=== PATIENT | male | born 1965 | race American Indian/Alaskan Native ===

== ENCOUNTER 2017-07-14 07:48 | Emergency (ER) | payer BC ==
[2017-07-14 08:00] VITALS: BP 167/66
--- NOTE | 2017-07-14 09:08 | Emergency Department Report ---
ED General Adult HPI - General Chief complaint: Allergic Reaction Stated complaint: ALLERGIC REACTION Time Seen by Provider: 07/14/17 08:51 Source: patient Mode of arrival: Ambulatory Limitations: No Limitations - History of Present Illness Initial comments: PT states he used a new hair dye on his olivia and eye brows yesterday. PT reports an allergic reaction. Pt states his skin is itchy and irritated. PT denies sob or throat swelling. MD Complaint: allergic reaction -: Gradual, days(s) Location: face Quality: constant (irritated, itching ) Consistency: constant Associated Symptoms: rash. denies: chest pain, cough, nausea/vomiting, shortness of breath Treatments Prior to Arrival: none - Related Data Previous Rx's Medication Instructions Recorded Last Taken Type Cephalexin [Keflex] 500 mg PO Q6HR #40 capsule 07/14/17 Unknown Rx hydrOXYzine PAMOATE [Vistaril] 25 mg PO Q6HR PRN #12 capsule 07/14/17 Unknown Rx methylPREDNISolone [Medrol] 4 mg PO DAILY #1 tab.ds.pk 07/14/17 Unknown Rx Allergies Allergy/AdvReac Type Severity Reaction Status Date / Time red dye Allergy Rash Verified 07/14/17 07:54 ED Review of Systems ROS: Stated complaint: ALLERGIC REACTION Other details as noted in HPI Comment: All other systems reviewed and negative Constitutional: denies: fever, malaise ENT: other (facial rash ). denies: throat pain, congestion Respiratory: denies: cough, shortness of breath Cardiovascular: denies: chest pain Skin: rash ED Past Medical Hx - Past Medical History Previous Medical History?: No - Surgical History Past Surgical History?: Yes Additional Surgical History: right wrist repair - Social History Smoking Status: Former Smoker Substance Use Type: Marijuana - Medications Home Medications: Home Medications Medication Instructions Recorded Confirmed Last Taken Type Cephalexin [Keflex] 500 mg PO Q6HR #40 capsule 07/14/17 Unknown Rx hydrOXYzine PAMOATE [Vistaril] 25 mg PO Q6HR PRN #12 capsule 07/14/17 Unknown Rx methylPREDNISolone [Medrol] 4 mg PO DAILY #1 tab.ds.pk 07/14/17 Unknown Rx ED Physical Exam - General Limitations: No Limitations General appearance: alert, in no apparent distress - Head Head exam: Present: atraumatic, normocephalic, normal inspection - Eye Eye exam: Present: normal appearance, PERRL. Absent: conjunctival injection - ENT ENT exam: Present: normal exam, mucous membranes moist, normal external ear exam - Neck Neck exam: Present: normal inspection, full ROM. Absent: lymphadenopathy - Respiratory Respiratory exam: Present: normal lung sounds bilaterally. Absent: respiratory distress, wheezes, chest wall tenderness - Cardiovascular Cardiovascular Exam: Present: regular rate, normal rhythm - Extremities Exam Extremities exam: Present: normal inspection, full ROM - Back Exam Back exam: Present: normal inspection, full ROM - Neurological Exam Neurological exam: Present: alert, altered - Psychiatric Psychiatric exam: Present: normal affect, normal mood - Skin Skin exam: Present: warm, dry, intact, rash, other (erythemic rash along chin and above eye brows. ) ED Course Vital Signs 07/14/17 07:57 Temperature 98.4 F Pulse Rate 82 Respiratory 17 Rate Blood Pressure 167/66 [Left] O2 Sat by Pulse 100 Oximetry - Reevaluation(s) Reevaluation #1: 07/14/17 09:09 PT treated with Solu-medrol. PT aware of plan of care. PT given strict return precautions. PT verbalizes understanding. PT has no questions at this time. - Pulse Oximetry Interpretation Digit-Finger Initial Pulse Oximetry Readin Actions Taken: none ED Medical Decision Making - Differential Diagnosis allergic reaction Critical Care Time: No Critical care attestation.: If time is entered above; I have spent that time in minutes in the direct care of this critically ill patient, excluding procedure time. ED Disposition Clinical Impression: Allergic reaction to dye Qualifiers: Encounter type: initial encounter Qualified Code(s): T50.995A - Adverse effect of other drugs, medicaments and biological substances, initial encounter Disposition: DC-01 TO HOME OR SELFCARE Is pt being admited?: No Does the pt Need Aspirin: No Condition: Stable Instructions: Contact Dermatitis (ED), Hypertension (ED) Additional Instructions: No driving or alcohol after taking vistaril try not scratch Avoid using hair dye at this time. If you want to use hair dye in the future, please spot test before applying. return to the ED if worsening or concerns. Follow up with PCP in 3-5 days for BP recheck Prescriptions: Cephalexin [Keflex] 500 mg PO Q6HR #40 capsule hydrOXYzine PAMOATE [Vistaril] 25 mg PO Q6HR PRN #12 capsule PRN Reason: Itching methylPREDNISolone [Medrol] 4 mg PO DAILY #1 tab.ds.pk Referrals: PRIMARY CAREMD [Primary Care Provider] - 3-5 Days RONALD CRAWLEY MD [Staff Physician] - 3-5 Days [facility] [Outside] - 3-5 Days [facility] [Outside] - 3-5 Days Forms: Work/School Release Form(ED) Time of Disposition: 09:11
== END 2017-07-14 09:35 | disposition home or self-care (01) ==
LOC: ED 07:48
DX: T50.995A Adverse effect of other drugs, medicaments and biological substances, initial encounter (principal); Y92.9 Unspecified place or not applicable; F12.10 Cannabis abuse, uncomplicated
CPT/HCPCS: 96372; 99281; J2930

== ENCOUNTER 2017-08-02 17:08 | Emergency (ER) | payer BC ==
[2017-08-02] MEDS ORDERED: CLEOCIN IM STA (19:12)
[2017-08-02] MEDS ORDERED: DECADRON IM ONE (19:13)
[2017-08-02] MEDS ORDERED: PERCOCET 5/325 PO PRN (19:13)
--- NOTE | 2017-08-02 19:15 | Emergency Department Report ---
Abscess Boil [facility] - HPI Chief Complaint: Skin Rash Stated Complaint: FACIAL DRAINAGE Time Seen by Provider: 08/02/17 19:11 Duration: >1 Week Location: Other (FACE) Severity: Mild History: Yes Purulent Drainage, Yes Previous History (RECENTLY TX BUT DID NOT FOLLOW UP), No Fever, No Pain, No Numbness, No Foreign Body, No Insect Bite Home Medications: Previous Rx's Medication Instructions Recorded Last Taken Type Clindamycin [Clindamycin CAP] 300 mg PO Q8H #30 cap 08/02/17 Unknown Rx traMADol [Ultram] 50 mg PO Q6HR PRN #12 tablet 08/02/17 Unknown Rx Allergies/Adverse Reactions: Allergies Allergy/AdvReac Type Severity Reaction Status Date / Time red dye Allergy Rash Verified 08/02/17 17:16 ED Review of Systems ROS: Stated complaint: FACIAL DRAINAGE Other details as noted in HPI ED Past Medical Hx - Surgical History Additional Surgical History: right wrist repair - Social History Smoking Status: Never Smoker Substance Use Type: Marijuana - Medications Home Medications: Home Medications Medication Instructions Recorded Confirmed Last Taken Type Clindamycin [Clindamycin CAP] 300 mg PO Q8H #30 cap 08/02/17 Unknown Rx traMADol [Ultram] 50 mg PO Q6HR PRN #12 tablet 08/02/17 Unknown Rx ED Abscess Boil Physical Exam - Exam General: Vital signs noted. No distress. Alert and acting appropriately. Exam: Yes Tenderness, Yes Surrounding Cellulites/Erythema, Yes Normal Neurologic Exam, Yes Normal Circulation, No Fluctuance, No Lymphangitis, No Crepitation, No Heart Murmur Exam: RETURN W SAME INFECTION 2 W AGO. HE SAID STARTED W USE OF NEW HAIR DYE. BUT CELLULITIC NOW. DRAINING. SWELLING. DID NOT FOLLOW UP ED Course Vital Signs 08/02/17 17:16 Temperature 98 F Pulse Rate 90 Respiratory 16 Rate Blood Pressure 127/79 O2 Sat by Pulse 99 Oximetry - Reevaluation(s) Reevaluation #1: 08/02/17 19:17 TO ER W RECURRENT CELLULITUS TO R SIDE OF FACE WAS ON KEFLEX PO DID NOT FOLLOW UP THE WHAT APPEARS TO BE FOLLICULITIS HAS RETURNED NON TOXIC NO FEVER BUT R SIDE OF FACE IS DRAINING YELLOW SEROUS DRAINAGE FACIAL HAIR IS THICK AND WILL NEED TO COME OFF TO HALT THIS FROM RECURRING. MEDICATED DC HOME W DC POC WILL FOLLOW UP Critical care attestation.: If time is entered above; I have spent that time in minutes in the direct care of this critically ill patient, excluding procedure time. ED Disposition Clinical Impression: Cellulitis, Folliculitis Disposition: TO HOME OR SELFCARE Is pt being admited?: No Does the pt Need Aspirin: No Condition: Stable Instructions: Cellulitis (ED) Additional Instructions: KEEP CLEAN SHAVE FACIAL HAIR EPSOM SALT SOAKS WILL HELP TO DRAIN MOTRIN OR TYLENOL FOR MILD PAIN ULTRAM FOR SEVERE PAIN FOLLOW UP INSTRUCTED WITH PCP SEE BELOW RETURN TO ER FOR FEVER OR WORSENING INFECTION BEFORE YOU CAN BE SEEN BY PCP NO PEROXIDE Prescriptions: Clindamycin [Clindamycin CAP] 300 mg PO Q8H #30 cap traMADol [Ultram] 50 mg PO Q6HR PRN #12 tablet PRN Reason: Pain Referrals: PRIMARY CARE, [Primary Care Provider] - 3-5 Days TIFFANY PHOENIX MD [Staff Physician] - 3-5 Days Time of Disposition: 19:13
[2017-08-02 19:39] VITALS: BP 136/97
== END 2017-08-02 19:39 | disposition home or self-care (01) ==
LOC: ED 17:08
DX: L03.211 Cellulitis of face (principal); L73.9 Follicular disorder, unspecified; Z88.8 Allergy status to other drugs, medicaments and biological substances; F12.10 Cannabis abuse, uncomplicated
CPT/HCPCS: 96372; 99282; J1100